=== PATIENT | male | born 1970 ===

== ENCOUNTER 2021-06-28 14:46 | Emergency (ER) | payer MEDICARE ==
[~2021-06-28] VITALS: Ht 175.3 cm; Wt 141.5 kg
== END 2021-06-28 16:00 | disposition home or self-care (01) ==
LOC: ER 14:46
DX: U07.1 COVID-19 (principal)
CPT/HCPCS: 99283

== ENCOUNTER 2025-04-01 15:07 | Emergency (ER) | payer BC, MEDICARE, OTHER ==
[~2025-04-01] VITALS: Ht 188 cm; Wt 104.3 kg
[2025-04-01 15:36] VITALS: BP 135/94
== END 2025-04-01 15:42 | disposition home or self-care (01) ==
LOC: ER 15:07
DX: R20.2 Paresthesia of skin (principal)
CPT/HCPCS: 99283